=== PATIENT | male | born 1930 | race Caucasian/White ===

== ENCOUNTER 2020-07-29 06:22 | Observation (INO) | payer OTHER ==
[2020-07-29] MEDS ORDERED: Magnesium 2 GM/50 ML BAG (IN WATER) ONE (06:36)
[2020-07-29 07:30] LABS: #Basophils 0.1 10x3/uL (0.0-0.2); #Eosinphils 0.5 10x3/uL (0.0-0.5); #Monocytes 0.7 10x3/uL (0.0-1.1); #Neutrophils 4.4 10x3/uL (1.5-8.4); %Basophils 1.2 % (0.0-2.0); %Eosinophils 6.4 % (0.0-6.0); %Lymphocytes 27.1 % (18.0-47.0); %Monocytes 8.4 % (0.0-10.0); %Neutrophils 56.6 % (40.0-75.0); Hemoglobin 16.2 g/dL (13.5-17.5); Mean Corpuscular HGB CONC 34.4 g/dL (32.0-36.0); Mean Corpuscular Hemoglobin 32.1 pg (27.0-33.0); Mean Corpuscular Volume 93.5 fl (81.2-95.1); Mean Platelet Volume 10.6 fl (7.4-10.4); Platelet Count 174 10x3/uL (150-450); RBC Distribution Width 12.8 % (11.5-14.5); Red Blood Cell (RBC) Count 5.04 10x6/uL (4.32-5.72); White Blood Cell (WBC) Count 7.8 10x3/uL (3.5-10.5)
[2020-07-29 07:38] LABS: INR-International Normal Ratio 1.2; Prothrombin Time 12.2 sec (9.5-12.1)
[2020-07-29 07:42] LABS: ALT (SGPT) 14 U/L (8-55); AST (SGOT) 18 U/L (5-34); Albumin 3.7 g/dL (3.4-4.8); Alkaline Phosphatase 108 U/L (40-110); Anion Gap 14 mmol/L (10-20); BUN (Urea Nitrogen) 29 mg/dL (8.4-25.7); Bilirubin, Total 0.6 mg/dL (0.2-1.2); Calc. Creatinine Clearance 0 mL/min (70-130); Calcium 8.4 mg/dL (7.8-10.44); Carbon Dioxide 22 mmol/L (23-31); Chloride 107 mmol/L (98-107); Globulin 3.2 g/dL (2.4-3.5); Glucose 112 mg/dL (83-110); Potassium 3.9 mmol/L (3.5-5.1); Protein, Total 6.9 g/dL (5.8-8.1); Sodium 139 mmol/L (136-145)
[2020-07-29] MEDS ORDERED: Enoxaparin Sodium 100 MG/ML SYRINGE ONE (07:59)
[2020-07-29] MEDS ORDERED: Aspirin Chewable 81 MG TAB ONE (07:59)
[2020-07-29] MEDS ORDERED: Ondansetron PF 4 MG/2 ML Vial IVP PRN (08:23)
[2020-07-29] MEDS ORDERED: Acetaminophen 325 MG TAB PO PRN (08:23)
[2020-07-29] MEDS ORDERED: Diltiazem 125 MG in Sodium Chloride 0.9% 100 ML IVPB SCH (08:30)
[2020-07-29 11:51] VITALS: BMI 33.7
[2020-07-29 14:19] LABS: Troponin I 0.028 ng/mL (< 0.028)
[2020-07-29] MEDS ORDERED: Digoxin 0.5 MG/2 ML AMP ONE (16:41)
[2020-07-29] MEDS ORDERED: Digoxin 0.5 MG/2 ML AMP SLOW IVP SCH (17:00)
[2020-07-29] MEDS ORDERED: Warfarin Sodium 7.5 MG TAB PO SCH (18:30)
[2020-07-29] MEDS: Enoxaparin Sodium 100 MG/ML SYRINGE SC SCH (20:32)
[2020-07-29] MEDS ORDERED: Simvastatin 10 MG TAB PO SCH (21:00)
[2020-07-30 05:28] LABS: #Basophils 0.1 10x3/uL (0.0-0.2); #Eosinphils 0.4 10x3/uL (0.0-0.5); #Monocytes 0.6 10x3/uL (0.0-1.1); #Neutrophils 3.9 10x3/uL (1.5-8.4); %Basophils 0.7 % (0.0-2.0); Hemoglobin 14.5 g/dL (13.5-17.5); Mean Corpuscular Hemoglobin 32.2 pg (27.0-33.0); Mean Corpuscular Volume 94.5 fl (81.2-95.1); Mean Platelet Volume 10.8 fl (7.4-10.4); Platelet Count 164 10x3/uL (150-450); RBC Distribution Width 13.1 % (11.5-14.5); Red Blood Cell (RBC) Count 4.51 10x6/uL (4.32-5.72); White Blood Cell (WBC) Count 7.1 10x3/uL (3.5-10.5)
[2020-07-30 05:34] LABS: Anion Gap 12 mmol/L (10-20); BUN (Urea Nitrogen) 27 mg/dL (8.4-25.7); Calc. Creatinine Clearance 47 mL/min (70-130); Calcium 7.9 mg/dL (7.8-10.44); Carbon Dioxide 22 mmol/L (23-31); Chloride 109 mmol/L (98-107); Glucose 100 mg/dL (83-110); Potassium 4.3 mmol/L (3.5-5.1); Sodium 139 mmol/L (136-145)
[2020-07-30 06:10] LABS: INR-International Normal Ratio 1.2; Prothrombin Time 12.7 sec (9.5-12.1)
[2020-07-30] MEDS: Enoxaparin Sodium 100 MG/ML SYRINGE SC SCH (08:52)
[2020-07-30 15:33] VITALS: BP 116/62; TEMP 97.3
[2020-07-30] MEDS ORDERED: Warfarin Sodium 7.5 MG TAB PO SCH (17:00)
== END 2020-07-30 17:40 | disposition home or self-care (01) ==
LOC: SUATTDRO 06:22 → CSHERS 06:22 → CSHTELE 10:34 → EEVIPCON 10:34
PROVIDERS: ADMIT Internal Medicine; ATTEND Internal Medicine
DX: I48.0 Paroxysmal atrial fibrillation (principal); F41.9 Anxiety disorder, unspecified; Z79.01 Long term (current) use of anticoagulants; Z79.899 Other long term (current) drug therapy; E78.5 Hyperlipidemia, unspecified; N28.9 Disorder of kidney and ureter, unspecified
CPT/HCPCS: 36415; 71045; 80048; 80053; 83735; 84443; 84484; 85025; 85610; 93005; 96365; 96366; 96368; 96372; 96375; G0378; J1160; J1650; J3475; J3490